=== PATIENT | male | born 1995 | race Caucasian/White ===

== ENCOUNTER → 2017-06-24 | Outpatient (CLI) | payer SELFPAY ==
[~2017-06-24] MED LIST: NORCO 325 MG-51 TAB PO; VOLTAREN 75 DR75 MG PO
== END ==
LOC: COL.VAS 12:30
DX: M79.89 Other specified soft tissue disorders (principal)

== ENCOUNTER 2019-06-21 20:06 | Emergency (ER) | payer OTHER ==
[~2019-06-21] VITALS: Ht 180.3 cm; Wt 90.9 kg
[2019-06-21] MEDS ORDERED: MEDROL 4MG DOSPA4 MG PO (21:38)
[2019-06-21] MEDS ORDERED: PERCOCET 325 MG1 TA2 PO (21:38)
[2019-06-21] MEDS ORDERED: FLEXERIL 1010 MG/TAB PO (21:38)
[2019-06-21 22:18] VITALS: BP 114/82; PULSE 64; TEMP 98.2
== END 2019-06-21 22:20 | disposition home or self-care (01) ==
LOC: COL.ER 20:06
DX: S16.1XXA Strain of muscle, fascia and tendon at neck level, initial encounter (principal); X50.1XXA Overexertion from prolonged static or awkward postures, initial encounter
CPT/HCPCS: J1885

== ENCOUNTER 2020-08-18 13:47 | Emergency (ER) | payer BC ==
[~2020-08-18] VITALS: Ht 180.3 cm; Wt 100.0 kg
[~2020-08-18 13:47] MED LIST changes: +FLEXERIL 1010 MG/TAB PO; +MEDROL 4MG DOSPA4 MG PO; +PERCOCET 325 MG1 TA2 PO
[2020-08-18 13:55] VITALS: TEMP 97.9
[2020-08-18 14:22] LABS: BASO % 0.4 % (0.0-2.0); EOS # 0.1 (0.0-0.7); EOS % 1.5 % (0-4.0); GRAN # 4.4 (1.4-6.5); GRAN % 55.7 % (42.2-75.2); HEMATOCRIT 45.8 % (42.0-52.0); HEMOGLOBIN 16.6 g/dl (13.5-18.0); LYMPH # 2.6 (1.2-3.4); MEAN CELL VOLUME 87 fl (80.0-100.0); MEAN CORPUSCULAR HEMOGLOBIN 31 pg (27.0-31.0); MEAN CORPUSCULAR HGB CONC 36 g/dl (33.0-37.0); MONO # 0.7 (0.1-0.6); MONO % 8.8 % (1.7-9.3); PLATELET COUNT 242 K/mm3 (130-400); RED BLOOD COUNT 5.29 M/mm3 (4.20-5.60)
[2020-08-18 14:39] LABS: ALANINE AMINOTRANSFERASE 88 U/L (4-49); ALBUMIN 5.1 gm/dL (3.5-5.0); ALKALINE PHOSPHATASE 58 U/L (50-136); ANION GAP 12 mmol/L (7-16); AST,SGOT 49 U/L (15-37); BILIRUBIN,TOTAL 0.7 mg/dL (0.0-1.0); BLOOD UREA NITROGEN 15 mg/dL (9-20); CALCIUM 10.2 mg/dL (8.4-10.2); CARBON DIOXIDE 27 mmol/L (22-30); CHLORIDE 101 mmol/L (98-107); CREATININE, serum 0.97 (0.66-1.25); GLUCOSE 106 mg/dL (74-106); POTASSIUM 3.8 mmol/L (3.4-5.0); SODIUM 140 mmol/L (137-145); TOTAL PROTEIN 8.5 gm/dL (6.4-8.2)
[2020-08-18 14:53] LABS: TROPONIN-I < 0.012 ng/mL (0.000-0.035)
[2020-08-18] MEDS ORDERED: PEPCID 20MG TAB20 MG PO (18:22)
[2020-08-18 19:35] VITALS: BP 142/94; PULSE 59
== END 2020-08-18 19:35 | disposition home or self-care (01) ==
LOC: COL.ER 13:47
PROVIDERS: Emergency Medicine
DX: S16.1XXA Strain of muscle, fascia and tendon at neck level, initial encounter (principal); M66.0 Rupture of popliteal cyst; M62.838 Other muscle spasm; S86.919A Strain of unspecified muscle(s) and tendon(s) at lower leg level, unspecified leg, initial encounter; X58.XXXA Exposure to other specified factors, initial encounter